=== PATIENT | female | born 1990 | race Caucasian/White ===

== ENCOUNTER 2020-01-22 11:46 | Emergency (ER) | payer OTHER, SELFPAY ==
[2020-01-22 11:54] VITALS: BP 120/61; PULSE 86; RESP 16; TEMP 36.6; O2SAT 98
--- NOTE | 2020-01-22 12:17 | ED.GENADULT ---
HPI - General Adult General Chief complaint: Shortness of Breath/Dyspnea Stated complaint: Asthma problems Time Seen by Provider: 01/22/20 12:31 Source: patient History of Present Illness HPI narrative: Patient ran out of her inhalers for her asthma 2 weeks ago. Patient states she started having wheezing and a little bit of increased shortness of breath 2 days ago. Patient states she is no longer able to see her primary care provider but has an appointment scheduled with a new primary care provider in 2 weeks. Patient denies any shortness of breath no chest pain no fever occasional dry nonproductive cough. Patient denies any upper respiratory symptoms and no COVID-19 exposure. Related Data Allergies Allergy/AdvReac Type Severity Reaction Status Date / Time No Known Allergies Allergy Verified 01/22/20 12:18 Review of Systems Review of Systems: Narrative: CONSTITUTIONAL: Denies fever, chills, or sweats. EYES: Denies visual changes, redness, or discharge. ENT: Denies rhinorrhea, congestion, sore throat, or otalgia. CARDIOVASCULAR: Denies chest pain, palpitations, or edema. RESPIRATORY: Denies cough or dyspnea. GASTROINTESTINAL: Denies abdominal pain, nausea, vomiting, or diarrhea. GENITOURINARY: Denies dysuria or hematuria. SKIN: Denies rash or itching. MUSCULOSKELETAL: Denies back pain, joint pain, or myalgia. NEUROLOGIC: Denies headache, numbness, or weakness. PSYCHIATRIC: Denies anxiety or depression. PMFSH Comments At time of signature, agree with nursing past medical, surgical, social and family history. There is no relevant family history pertinent to the presenting complaint Exam Narrative: Exam Narrative: GENERAL: Well-appearing, well-nourished, and in no acute distress. HEAD: Normocephalic, atraumatic. EYES: PERRLA and EOMI. ENT: Nares clear, no rhinorrhea or epistaxis. Mucous membranes moist. NECK: Supple. CHEST: Clear to auscultation. No respiratory distress. HEART: Regular rate and rhythm. No murmur heard. Normal peripheral pulses. ABDOMEN: Soft, nontender, nondistended, normal active bowel sounds. EXTREMITIES: Normal range of motion. No edema. SKIN: Warm, dry, no rash. NEURO: No focal deficits. Alert and oriented x3. [place] Coma Scale Eye Opening: Spontaneous 4 [place] Coma Scale Motor: Obeys Commands 6 [place] Coma Scale Verbal: Oriented 5 [place] Coma Scale Total 15 Course Vital Signs Vital signs: Vital Signs Temperature 36.6 C 01/22/20 11:54 Pulse Rate 86 01/22/20 11:54 Respiratory Rate 16 01/22/20 11:54 Blood Pressure 120/61 01/22/20 11:54 Pulse Oximetry 98 01/22/20 11:54 Temperature 36.6 C 01/22/20 11:54 Pulse Rate 86 01/22/20 11:54 Respiratory Rate 16 01/22/20 11:54 Blood Pressure 120/61 01/22/20 11:54 Pulse Oximetry 98 01/22/20 11:54 Medical Decision Making Vital Signs Vital Signs: Vital Signs Temperature 36.6 C 01/22/20 11:54 Pulse Rate 86 01/22/20 11:54 Respiratory Rate 16 01/22/20 11:54 Blood Pressure 120/61 01/22/20 11:54 Pulse Oximetry 98 01/22/20 11:54 Temperature 36.6 C 01/22/20 11:54 Pulse Rate 86 01/22/20 11:54 Respiratory Rate 16 01/22/20 11:54 Blood Pressure 120/61 01/22/20 11:54 Pulse Oximetry 98 01/22/20 11:54 Critical Care Time Critical Care Time Critical Care Time: No Discharge Plan Discharge Clinical Impression: Asthma with exacerbation Patient Disposition: Home, Self-Care Condition: Stable Instructions: Antibiotic Form, Asthma (DC) Additional Instructions: Use inhalers as prescribed Take prednisone with food as prescribed until gone If any new or worsening symptoms go to ER immediately for further evaluation treatment Follow-up with new primary care provider when available Prescriptions: New albuterol sulfate [ProAir HFA] 90 mcg/actuation HFA aerosol inhaler 2 puff inhalation QID PRN (Reason: shortness of breath or wheezing) Qty: 18 RF: 0 Qvar RediHaler 4
== END 2020-01-22 12:38 | disposition home or self-care (01) ==
PROVIDERS: Emergency Provider Nurse Practitioner Family; PCP Nurse Practitioner Family
DX: J45.901 Unspecified asthma with (acute) exacerbation (principal); K21.9 Gastro-esophageal reflux disease without esophagitis
CPT/HCPCS: 99213; G0463

== ENCOUNTER 2021-01-27 10:38 | Emergency (ER) | payer OTHER, SELFPAY ==
[2021-01-27 10:42] VITALS: BP 114/55; PULSE 81; RESP 20; TEMP 36.6; O2SAT 95
--- NOTE | 2021-01-27 10:48 | ED.URI ---
HPI - URI/Sore Throat General Chief Complaint: Upper Respiratory Infection Stated Complaint: asthma flair up History of Present Illness HPI Narrative: This is a 30-year-old female that presents to the urgent care complaining of some shortness of breath and wheezing. Patient states she called her primary care provider who told her to continue to use her inhaler. Patient currently is a pack-a-day smoker and continues to smoke. Patient denies any fever nausea vomiting and/or diarrhea. Patient denies any exposure to Covid influenza or strep. Patient states her symptoms started 2 days ago Related Data Home Medications Medication Instructions Recorded Confirmed fluticasone propionate [Flovent 2 puff INHALATION DAILY 01/27/21 01/27/21 HFA] montelukast 10 mg PO DAILY 01/27/21 01/27/21 venlafaxine 37.5 mg PO DAILY 01/27/21 01/27/21 Allergies Allergy/AdvReac Type Severity Reaction Status Date / Time No Known Allergies Allergy Verified 01/27/21 10:49 Review of Systems Review of Systems: Shortness of breath All systems reviewed & are unremarkable except as noted in HPI and below PMFSH Comments At time as signature, I have reviewed and agree with nursing past medical, social, surgical and family history. Please see nursing chart for further information. There is no relevant family history pertinent to the presenting complaint. Exam Narrative: GENERAL:Well-appearing, well-nourished, and in no acute distress. HEAD:Normocephalic EYES: PERRLA ENT: Nares clear, no rhinorrhea or epistaxis. Mucous membranes moist. CHEST: Wheezes bilaterally in all quadrants and diminished in lower lobes to auscultation. No respiratory distress. HEART: Regular rate and rhythm. ABDOMEN: Soft, nontender normal active bowel sounds. EXTREMITIES: Normal range of motion. No edema. SKIN: Warm, dry, no rash. NEURO: No focal deficits. Alert and oriented x3. Course Vital Signs Vital signs: Vital Signs Temperature 97.8 F 01/27/21 10:42 Pulse Rate 81 01/27/21 10:42 Respiratory Rate 20 01/27/21 10:42 Blood Pressure 114/55 L 01/27/21 10:42 Pulse Oximetry 95 01/27/21 10:42 Temperature 97.8 F 01/27/21 10:42 Pulse Rate 81 01/27/21 10:42 Respiratory Rate 20 01/27/21 10:42 Blood Pressure 114/55 L 01/27/21 10:42 Pulse Oximetry 95 01/27/21 10:42 Discharge Plan Discharge Clinical Impression: Asthma exacerbation Qualifiers: Asthma severity: moderate Asthma persistence: persistent Qualified Code(s): J45.41 - Moderate persistent asthma with (acute) exacerbation Patient Disposition: Home, Self-Care Condition: Stable Instructions: Antibiotic Form, Asthma (ED), How to Stop Smoking (ED) Additional Instructions: Make sure you know what to do if exercise is a trigger for you. Many people use quick-relief inhalers before exercise or physical activity. Get a flu shot every year and get pneumonia shots as advised by your healthcare provider. Try to keep your windows closed during pollen seasons and when mold counts are high. On cold or windy days, cover your nose and mouth with a scarf. Try to stay away from people who are sick with colds or the flu. Wash your hands often or use a hand wax pourer. If respiratory infections like colds or flu trigger your asthma, use your quick-relief medicines as soon as you begin to notice respiratory symptoms. They may include a runny or stuffy nose, sore throat, or a cough. Follow-up care Make a follow-up appointment as directed. Follow your asthma action plan if you were given one. Call 911 Call 911 right away if you have: Severe wheezing Shortness of breath that is not relieved by your quick-relief medicine Trouble walking or talking because of shortness of breath Blue lips or fingernails Prescriptions: New albuterol sulfate 1.25 mg/3 mL solution for nebulization 1.25 mg inhalation Q4H Qty: 75 RF: 0 methylprednisolone [Medrol (Jay)] 4 mg tablets,dose pack
[2021-01-27] MEDS: ALBUTEROL SULFATE NEB 2.5 MG/3 ML INH INHALATION (11:07)
[2021-01-27] MEDS: IPRATROPIUM BR 0.02% INH SOLN 0.5 MG/2.5 ML VIAL INHALATION (11:07)
== END 2021-01-27 12:00 | disposition home or self-care (01) ==
PROVIDERS: Emergency Provider Nurse Practitioner Family; PCP Nurse Practitioner Family
DX: J45.41 Moderate persistent asthma with (acute) exacerbation (principal); K21.9 Gastro-esophageal reflux disease without esophagitis
CPT/HCPCS: 94640; 99213; G0463

== ENCOUNTER 2024-08-19 15:09 | Emergency (ER) | payer SELFPAY ==
[2024-08-19 15:22] VITALS: BP 128/59; PULSE 82; RESP 16; TEMP 36.6; O2SAT 100
--- NOTE | 2024-08-19 15:47 | ED_ITS ---
HPI - General Adult General Chief complaint: Dental/Oral Stated complaint: cheek swollen, sinus pressure Source: patient Mode of arrival: ambulatory Limitations: no limitations History of Present Illness HPI narrative: Patient presents for evaluation of right-sided facial pain. Symptom onset this morning upon waking for the day. She indicates she knows that she has ?bad teeth?. She also reports some sinus congestion is wondering whether symptoms are related to allergies. Fever, chills, sore throat, cough, shortness of breath. She tried taking ibuprofen 400 mg for symptoms. She smokes approximately half a pack per day. Related Data Home Medications ?Medication ?Instructions ?Recorded ?Confirmed ?Last Taken ?Type fluticasone propionate 44 2 puff inhalation DAILY 01/27/21 01/27/21 Unknown History mcg/actuation HFA aerosol inhaler (Flovent HFA) montelukast 10 mg tablet 10 mg PO DAILY 01/27/21 01/27/21 Unknown History venlafaxine 37.5 mg 37.5 mg PO DAILY 01/27/21 01/27/21 Unknown History capsule,extended release 24 hr Allergies Allergy/AdvReac Type Severity Reaction Status Date / Time No Known Allergies Allergy Verified 01/27/21 10:49 Review of Systems Review of Systems: CONSTITUTIONAL: Denies fever, chills, or sweats. EYES: Denies visual changes, redness, or discharge. ENT: Reports ?bad teeth? and right-sided facial swelling. CARDIOVASCULAR: Denies chest pain, palpitations, or edema. RESPIRATORY: Denies cough or dyspnea. GASTROINTESTINAL: Denies abdominal pain, nausea, vomiting, or diarrhea. GENITOURINARY: Denies dysuria or hematuria. SKIN: Denies rash or itching. MUSCULOSKELETAL: Denies back pain, joint pain, or myalgia. NEUROLOGIC: Denies headache, numbness, dizziness, or weakness. PSYCHIATRIC: Denies anxiety or depression. [facility] Past Medical History Medical History Depression Surgical History Surgical History No pertinent past surgical history Family History Family History Mother Family history non-contributory Social History Social History Smoking packs per day: 0.5 Smoking cigarettes per day: 10.0 Smoking status: Current every day smoker Tobacco type: cigarettes Substance use: never Gender identity (if verbalized by the patient): Female Spiritual care concerns: No Exam Narrative: GENERAL: Well-appearing, well-nourished, and in no acute distress. HEAD: Normocephalic, atraumatic. EYES: PERRLA and EOMI. ENT: There is trace swelling noted to the right side of the face. Nares clear, no rhinorrhea or epistaxis. Mucous membranes moist. Oropharynx without tonsillar hypertrophy exudate or other lesions. Tooth #1 and tooth #2 are fractured. There is no visible or palpable abscess. Bilateral TMs pearly ceballos nonbulging NECK: Supple. No adenopathy or masses. No carotid bruits or JVD CHEST: Clear to auscultation. No respiratory distress. No wheezes rales or rhonchi HEART: Regular rate and rhythm. No murmur heard. Normal peripheral pulses. ABDOMEN: Soft, nontender, nondistended, normal active bowel sounds. EXTREMITIES: Normal range of motion. No edema. SKIN: Warm, dry, no rash. NEURO: No focal deficits. Alert and oriented x3. PSYCH: Normal mood and affect. Course Course Level of Care: Express Care Visit Vital Signs Vital signs: Vital Signs Temperature 36.6 C 08/19/24 15:22 Pulse Rate 82 08/19/24 15:22 Respiratory Rate 16 08/19/24 15:22 Blood Pressure 128/59 L 08/19/24 15:22 Pulse Oximetry 100 08/19/24 15:22 Oxygen Delivery Room Air 08/19/24 15:22 Temperature 36.6 C 08/19/24 15:22 Pulse Rate 82 08/19/24 15:22 Respiratory Rate 16 08/19/24 15:22 Blood Pressure 128/59 L 08/19/24 15:22 Pulse Oximetry 100 08/19/24 15:22 Oxygen Delivery Room Air 08/19/24 15:22 Medical Decision Making Vital Signs Vital Signs: Vital Signs Temperature 36.6 C 08/19/24 15:22 Pulse Rate 82 08/19/24 15:22 Respiratory Rate 16 08/19/24 15:22 Blood Pressure 128/59 L 08/19/24 15:22 Pulse Oximetry 100 08/19/24 15:22 Oxygen Delivery Room Air 08/19/24 15:22 Temperature 36.6 C 08/19/24 15:22 Pulse Rate 82 08/19/24 15:22 Respiratory Rate 16 08/19/24 15:22 Blood Pressure 128/59 L 08/19/24 15:22 Pulse Oximetry 100 08/19/24 15:22 Oxygen Delivery Room Air 08/19/24 15:22 Discharge Plan Discharge Clinical Impression: Fracture of tooth Patient Disposition: Home Condition: Stable Instructions: Antibiotic Form, Toothache (ED) Patient Language: Citizen Of [place] Prescriptions: New penicillin V potassium 500 mg tablet 500 mg PO Q6H 10 Days Qty: 40 0RF No Action montelukast 10 mg tablet 10 mg PO DAILY venlafaxine 37.5 mg capsule,extended release 24hr 37.5 mg PO DAILY Flovent HFA 44 mcg/actuation HFA aerosol inhaler 2 puff INHALATION DAILY albuterol sulfate 1.25 mg/3 mL solution for nebulization 1.25 mg inhalation Q4H Qty: 75 0RF albuterol sulfate [ProAir HFA] 90 mcg/actuation HFA aerosol inhaler 2 puff inhalation QID PRN (Reason: shortness of breath or wheezing) Qty: 18 0RF albuterol sulfate 2.5 mg /3 mL (0.083 %) solution for nebulization 2.5 mg INHALATION Q4H PRN (Reason: shortness of breath or wheezing) Qty: 75 0RF Follow-up/Referrals: Robertson,Melody Ponce APN [Primary Care Provider] - Time of Disposition: 15:40
== END 2024-08-19 15:44 | disposition home or self-care (01) ==
PROVIDERS: Emergency Provider Nurse Practitioner; PCP Nurse Practitioner Family
DX: S02.5XXA Fracture of tooth (traumatic), initial encounter for closed fracture (principal); X58.XXXA Exposure to other specified factors, initial encounter; F17.210 Nicotine dependence, cigarettes, uncomplicated; F32.A Depression, unspecified
CPT/HCPCS: 99213; G0463